=== PATIENT | female | born 1995 | race Caucasian/White ===

== ENCOUNTER 2024-12-06 15:37 | Emergency (ER) | payer OTHER ==
[~2024-12-06] VITALS: Ht 162.6 cm; Wt 110.0 kg
[2024-12-06 16:24] LABS: HEMATOCRIT 42.1 % (36.0-47.0); HEMOGLOBIN 14.9 g/dl (12.0-15.5); MEAN CORPUSCULAR HEMOGLOBIN 33.5 pg (27.0-33.0); MEAN CORPUSCULAR HGB CONC 35.4 g/dl (32.0-36.5); MEAN CORPUSCULAR VOLUME 94.6 fl (80.0-96.0); PLATELET COUNT, AUTOMATED 204 10^3/uL (150-450); RED BLOOD COUNT 4.45 10^6/uL (4.00-5.40); WHITE BLOOD COUNT 6.8 10^3/uL (4.0-10.0)
[2024-12-06] MEDS ORDERED: HOME MED LIST COMPLETE! XX SCH (16:45)
[2024-12-06 16:50] LABS: AMPHETAMINES LEVEL URINE NEGATIVE (NEGATIVE); BARBITURATES URINE NEGATIVE (NEGATIVE); BENZODIAZEPINES URINE NEGATIVE (NEGATIVE)
[2024-12-06 16:51] LABS: CANNABINOIDS URINE NEGATIVE (NEGATIVE); COCAINE METABOLITE URINE NEGATIVE (NEGATIVE); METHADONE URINE NEGATIVE (NEGATIVE); OPIATES URINE NEGATIVE (NEGATIVE); PHENCYCLIDINE URINE NEGATIVE (NEGATIVE)
[2024-12-06 16:55] LABS: SALICYLATE LEVEL < 3.0 MG/DL (<30)
[2024-12-06 16:56] LABS: ALBUMIN 4.1 G/DL (3.2-5.2); ALKALINE PHOSPHATASE 63 U/L (35-104); ALT/SGPT 149 U/L (7.0-40); AST/SGOT 96 U/L (<34); BILIRUBIN,DIRECT 0.2 MG/DL (<0.4); BILIRUBIN,TOTAL 0.5 MG/DL (0.3-1.2); BLOOD UREA NITROGEN 8 MG/DL (9-23); CALCIUM LEVEL 8.6 MG/DL (8.5-10.1); CARBON DIOXIDE LEVEL 27 MMOL/L (20-31); CHLORIDE LEVEL 105 MMOL/L (98-107); CREATININE FOR GFR 0.59 MG/DL (0.55-1.30); GLOMERULAR FILTRATION RATE > 60.0 (>60); GLUCOSE, FASTING 93 MG/DL (60-100); SODIUM LEVEL 144 MMOL/L (136-145); TOTAL PROTEIN 7.7 G/DL (5.7-8.2)
[2024-12-06 16:57] LABS: THYROID STIMULATING HORMONE 0.928 uIU/ML (0.55-4.78)
[2024-12-06 16:59] LABS: HCG, SERUM QUALITATIVE NEGATIVE (NEGATIVE)
[2024-12-06] MEDS: LORazepam 2 MG TAB PO STA ×2 (17:01→21:48)
[2024-12-06 17:14] LABS: ETHYL ALCOHOL (ETHANOL) 0.344 % (0.000-0.010)
[2024-12-06] MEDS: ACETAMINOPHEN 325 MG TAB PO ONE (21:48)
[2024-12-06] MEDS: POTASSIUM CHLORIDE 10MEQ SR TABLET PO ONE (21:48)
[2024-12-07 05:44] VITALS: BP 158/84; TEMP 97.8; O2SAT 100
== END 2024-12-07 05:46 | disposition home or self-care (01) ==
LOC: M ED 15:37
DX: F43.0 Acute stress reaction (principal); F32.A Depression, unspecified; F31.9 Bipolar disorder, unspecified; F41.1 Generalized anxiety disorder; F43.10 Post-traumatic stress disorder, unspecified; F10.10 Alcohol abuse, uncomplicated

== ENCOUNTER 2025-01-06 17:58 | Emergency (ER) | payer OTHER ==
[~2025-01-06] VITALS: Ht 160 cm; Wt 99.6 kg
[2025-01-06 19:06] LABS: HEMOGLOBIN 15.3 g/dl (12.0-15.5); MEAN CORPUSCULAR HEMOGLOBIN 32.8 pg (27.0-33.0); MEAN CORPUSCULAR HGB CONC 34.8 g/dl (32.0-36.5); MEAN CORPUSCULAR VOLUME 94.2 fl (80.0-96.0); PLATELET COUNT, AUTOMATED 262 10^3/uL (150-450); RED BLOOD COUNT 4.67 10^6/uL (4.00-5.40); WHITE BLOOD COUNT 5.4 10^3/uL (4.0-10.0)
[2025-01-06 19:32] LABS: AMPHETAMINES LEVEL URINE NEGATIVE (NEGATIVE); BARBITURATES URINE NEGATIVE (NEGATIVE); BENZODIAZEPINES URINE NEGATIVE (NEGATIVE); CANNABINOIDS URINE NEGATIVE (NEGATIVE); COCAINE METABOLITE URINE NEGATIVE (NEGATIVE); METHADONE URINE NEGATIVE (NEGATIVE); PHENCYCLIDINE URINE NEGATIVE (NEGATIVE)
[2025-01-06 19:33] LABS: OPIATES URINE NEGATIVE (NEGATIVE)
[2025-01-06 19:35] LABS: HCG, SERUM QUALITATIVE NEGATIVE (NEGATIVE)
[2025-01-06 19:36] LABS: ALKALINE PHOSPHATASE 64 U/L (35-104); ALT/SGPT 83 U/L (7.0-40); AST/SGOT 51 U/L (<34); BILIRUBIN,DIRECT 0.1 MG/DL (<0.4); BILIRUBIN,TOTAL 0.4 MG/DL (0.3-1.2); BLOOD UREA NITROGEN 9 MG/DL (9-23); CALCIUM LEVEL 8.7 MG/DL (8.5-10.1); CARBON DIOXIDE LEVEL 26 MMOL/L (20-31); CHLORIDE LEVEL 106 MMOL/L (98-107); CREATININE FOR GFR 0.61 MG/DL (0.55-1.30); GLOMERULAR FILTRATION RATE > 60.0 (>60); GLUCOSE, FASTING 93 MG/DL (60-100); POTASSIUM SERUM 3.6 MMOL/L (3.5-5.1); SALICYLATE LEVEL < 3.0 MG/DL (<30); SODIUM LEVEL 143 MMOL/L (136-145); TOTAL PROTEIN 7.7 G/DL (5.7-8.2)
[2025-01-06 19:38] LABS: THYROID STIMULATING HORMONE 2.376 uIU/ML (0.55-4.78)
[2025-01-06 19:46] LABS: ETHYL ALCOHOL (ETHANOL) 0.345 % (0.000-0.010)
[2025-01-06] MEDS: FOLIC ACID 1MG TAB PO SCH (21:29)
[2025-01-06] MEDS: MULTIVITAMINS/MINERALS THERAP 1 TAB PO SCH (21:29)
[2025-01-06] MEDS: THIAMINE 100 MG TAB PO SCH (21:29)
[2025-01-06] MEDS: LORazepam 2 MG TAB PO PRN (21:30)
[2025-01-06] MEDS: ONDANSETRON 4MG ORAL DISINTEGRATING TAB PO ONE (21:41)
[2025-01-07] MEDS: ACETAMINOPHEN 325 MG TAB PO ONE (05:22)
[2025-01-07] MEDS: ONDANSETRON 4MG ORAL DISINTEGRATING TAB PO ONE (07:41)
[2025-01-07] MEDS ORDERED: ONDA-282 PO (09:54)
[2025-01-07 09:59] VITALS: BP 149/82; TEMP 96.8; O2SAT 97
== END 2025-01-07 10:07 | disposition home or self-care (01) ==
LOC: EDBD 17:58 → M ED 17:58
DX: F10.120 Alcohol abuse with intoxication, uncomplicated (principal); F31.9 Bipolar disorder, unspecified; F32.A Depression, unspecified; Z79.899 Other long term (current) drug therapy

== ENCOUNTER 2025-01-26 10:34 | Emergency (ER) | payer OTHER ==
[~2025-01-26] VITALS: Ht 160 cm; Wt 96.4 kg
[~2025-01-26 10:34] MED LIST: ONDA-282 PO
[2025-01-26] MEDS: METOCLOPRAMIDE INJ 10MG/2ML VIAL IV ONE (11:20)
[2025-01-26] MEDS: THIAMINE 100 MG TAB PO SCH (11:21)
[2025-01-26] MEDS: LORazepam 2 MG TAB PO PRN (11:21)
[2025-01-26] MEDS: OXAZEPAM 15MG CAP PO ONE (11:21)
[2025-01-26] MEDS: MULTIVITAMINS/MINERALS THERAP 1 TAB PO SCH (11:21)
[2025-01-26] MEDS: FOLIC ACID 1MG TAB PO SCH (11:21)
[2025-01-26 11:23] LABS: BASO # 0.1 10^3/uL (0.0-0.2); BASO % 0.6 % (0.0-1.0); EOS % 0.1 % (0.0-3.0); HEMATOCRIT 46.1 % (36.0-47.0); LYMPH # 0.8 10^3/uL (1.5-5.0); MEAN CORPUSCULAR HEMOGLOBIN 32.5 pg (27.0-33.0); MEAN CORPUSCULAR HGB CONC 34.7 g/dl (32.0-36.5); MEAN CORPUSCULAR VOLUME 93.7 fl (80.0-96.0); MONO # 0.5 10^3/uL (0.0-0.8); MONO % 5.1 % (2.0-8.0); NEUTROPHILS # 7.6 10^3/uL (1.5-8.5); PLATELET COUNT, AUTOMATED 312 10^3/uL (150-450); RED BLOOD COUNT 4.92 10^6/uL (4.00-5.40); WHITE BLOOD COUNT 8.9 10^3/uL (4.0-10.0)
[2025-01-26 11:49] LABS: LIPASE 30 U/L (12-53)
[2025-01-26 11:52] LABS: ALBUMIN 4.4 G/DL (3.2-5.2); ALKALINE PHOSPHATASE 77 U/L (35-104); ALT/SGPT 92 U/L (7.0-40); AST/SGOT 65 U/L (<34); BILIRUBIN,TOTAL 0.8 MG/DL (0.3-1.2); BLOOD UREA NITROGEN 6 MG/DL (9-23); CALCIUM LEVEL 9.5 MG/DL (8.5-10.1); CARBON DIOXIDE LEVEL 25 MMOL/L (20-31); CHLORIDE LEVEL 97 MMOL/L (98-107); CREATININE FOR GFR 0.52 MG/DL (0.55-1.30); GLOMERULAR FILTRATION RATE > 90.0 (>60); GLUCOSE, FASTING 106 MG/DL (60-100); MAGNESIUM LEVEL 1.6 MG/DL (1.8-2.4); POTASSIUM SERUM 4.1 MMOL/L (3.5-5.1); SODIUM LEVEL 135 MMOL/L (136-145); TOTAL PROTEIN 8.3 G/DL (5.7-8.2)
[2025-01-26] MEDS: MAG SULF 1GM/100ML (MAG RUN) 1 GM in IV 1 EA IV ONE (13:29)
[2025-01-26 13:37] LABS: INR 0.93; PROTHROMBIN TIME 12.8 SECONDS (12.5-14.5)
[2025-01-26 14:34] VITALS: BP 142/75; TEMP 98; O2SAT 97
== END 2025-01-26 14:56 | disposition home or self-care (01) ==
LOC: M ED 10:34
DX: F10.10 Alcohol abuse, uncomplicated (principal); I10 Essential (primary) hypertension; Z79.899 Other long term (current) drug therapy
CPT/HCPCS: 80053; 83690; 83735; 85025; 85610; 96374; 96375; 99285; J2765; J3475

== ENCOUNTER → 2025-04-29 | Outpatient (REF) | payer OTHER | LOC: M SFHCLERA 16:34 | PROVIDERS: ATTEND Internal Medicine | DX: L02.821 Furuncle of head [any part, except face] (principal) ==